=== PATIENT | male | born 1945 | race Caucasian/White ===

== ENCOUNTER 2016-03-29 08:20 | Emergency (ER) | payer OTHER, BC ==
[~2016-03-29] VITALS: Ht 175.3 cm; Wt 110.8 kg
[~2016-03-29 08:20] MED LIST: ADULT LOW DOSE81 M1 PO; ALTACE10 MG PO; ANTIVERT25 MG PO; ASPIRIN325 MG PO; ATIVAN1 MG PO; CADUET 10/201 TABLET PO; CIALIS5 MG PO; COLCRYS0.6 MG PO; COUMADIN2.5 MG PO; COUMADIN5 MG PO; DAILY VALUE1 EACH PO; DEMADEX20 MG PO; FISH OIL 1,0001 EAC8 PO; LOPRESSOR25 MG PO; LOVENOX100 MG/1 M SC; NITROSTAT0.6 MG SL; PERCOCET 5/31 TABLET PO; PLAVIX75 MG PO; PRAVASTATIN SOD80 MG PO; PROTONIX40 MG PO; ZYLOPRIM100 MG PO; [UNRECOGNIZED DRUG - REMARK] PO
[2016-03-29 09:15] LABS: EOSINOPHIL (%) 0.6 % (0-5); EOSINOPHIL COUNT 0.1 K/uL (0-0.3); HEMATOCRIT 51.7 % (38.0-50.0); IMMATURE GRANULOCYTE (%) 0.2 % (0.0-0.7); IMMATURE GRANULOCYTE COUNT 0.2 K/uL; LYMPHOCYTE COUNT 1.5 K/uL (1.0-2.8); MCH 31.3 PG (29.0-34.0); MCHC 34.6 G/DL (30.0-36.0); MCV 90.4 FL (86-99); MEAN PLAT.VOLUME 9.4 uM^3 (9.0-12.4); MONOCYTE (%) 5.5 % (3-12); MONOCYTE COUNT 0.5 K/uL (0-0.8); NEUTROPHIL (%) 75.2 % (45-76); NEUTROPHIL COUNT 6.3 K/uL (1.8-6.4); PLATELET COUNT 202 K/uL (156-360); RBC DIS.WIDTH-CV 13.7 % (11.8-14.6); RBC DIS.WIDTH-SD 44.8 % (39-53); RED BLOOD COUNT 5.72 M/uL (4.00-5.50); WHITE BLOOD COUNT 8.3 K/uL (4.1-10.2)
[2016-03-29 09:25] LABS: CHLORIDE 107 mEq/L (99-109); POTASSIUM 4.3 mEq/L (3.7-5.4); SODIUM 140 mEq/L (136-147)
[2016-03-29 09:26] LABS: GLUCOSE 167 mg/dL (70-99)
[2016-03-29 09:28] LABS: ANION GAP 12 MEQ/L (2-14)
[2016-03-29 09:30] LABS: GFR ESTIMATE (CALCULATED) > 59 mL/min/
[2016-03-29 09:31] LABS: UREA NITROGEN (BUN) 19 mg/dL (9-23)
[2016-03-29] MEDS ORDERED: ANTIVERT25 MG PO ×2 (11:39→11:40)
[2016-03-29 11:40] VITALS: BP 111/74
== END 2016-03-29 12:10 | disposition home or self-care (01) ==
LOC: EME → EDBD 08:20 → EME 08:20
PROVIDERS: Emergency Medicine
DX: R42 Dizziness and giddiness (principal); E78.5 Hyperlipidemia, unspecified; I10 Essential (primary) hypertension; Z95.5 Presence of coronary angioplasty implant and graft; Z85.46 Personal history of malignant neoplasm of prostate
CPT/HCPCS: 70450; 80048; 85025; 93005; 99281; 99285; J2405

== ENCOUNTER 2016-10-05 09:57 | Day surgery (SDC) | payer OTHER, BC ==
[~2016-10-05] VITALS: Ht 175.3 cm; Wt 106.6 kg
[~2016-10-05 09:57] MED LIST changes: +LIPITOR20 MG PO; +NORVASC10 MG PO; +ZYRTEC10 M3 PO
[2016-10-05 10:38] VITALS: BP 121/74
[2016-10-05 10:47] VITALS: BP 121/74
[2016-10-05 14:25] VITALS: BP 138/84
[2016-10-05 15:30] VITALS: BP 131/89
== END 2016-10-05 15:37 | disposition home or self-care (01) ==
LOC: SDC 09:57
PROC: 0SBC4ZZ Excision of Right Knee Joint, Percutaneous Endoscopic Approach (ICD-10-PCS; principal; 2016-10-05)
DX: S83.241A Other tear of medial meniscus, current injury, right knee, initial encounter (principal); M17.31 Unilateral post-traumatic osteoarthritis, right knee; W01.0XXA Fall on same level from slipping, tripping and stumbling without subsequent striking against object, initial encounter; Y93.73 Activity, racquet and hand sports; Y92.838 Other recreation area as the place of occurrence of the external cause; Y99.8 Other external cause status; G47.30 Sleep apnea, unspecified; I10 Essential (primary) hypertension; M10.9 Gout, unspecified; Z85.46 Personal history of malignant neoplasm of prostate; Z86.718 Personal history of other venous thrombosis and embolism; Z79.01 Long term (current) use of anticoagulants
CPT/HCPCS: J0171; J1885; J3010; S0020